=== PATIENT | female | born 1970 | race Caucasian/White ===

== ENCOUNTER 2017-10-09 00:13 | Emergency (ER) | payer MEDICAID, SELFPAY ==
[2017-10-09 00:14] VITALS: BP 144/40; PULSE 108; RESP 18; TEMP 36.8; O2SAT 98; BMI 21.6
--- NOTE | 2017-10-09 00:24 | XR_ITS ---
XR chest 2V Ordering Physician: Tyler Rosales MD Patient Age: 47 years: Female HISTORY: ITS.REASON: cough TECHNIQUE: PA and lateral chest COMPARISON :12/24/2008 and 01/29/2009 chest film FINDINGS No consolidation norfocal peripheral pneumonia . There may be some slight interstitial coarsening could not the subtle interstitial infiltrate but this is equivocal... May reflect chronic changes noted in the slight additional Mild hyperexpansion The heart janes and mediastinal structures appear similar to left janes is upper normal prominence of the study but stable since 2008 No pleural effusion or pneumothorax chest wall and T-spine stable unremarkable IMPRESSION: No consolidation or discrete focal pneumonia.. Only question some questionable very subtle coarsening of interstitial markings bilaterally. Most likely reflectingc subtle chronic changes, but Difficult to exclude a very subtle interstitial infiltrate particularly towards right base. This centimeters progress consider follow-up
[2017-10-09 00:56] LABS: Basophils # 0.1 K/mm3 (0-0.2); Basophils % 0.3 % (0.1-2.0); Eosinophils # 0.1 K/mm3 (0.0-0.4); Eosinophils % 0.6 % (0.1-12.0); Hematocrit 42.5 % (37.0-47.0); Lymphocytes # 2.8 K/mm3 (0.7-4.5); Lymphocytes % 14.9 K/mm3 (10-50); Mean Corpuscular HGB Conc 35.4 g/dL (31.8-35.4); Mean Corpuscular Hemoglobin 31.8 pg (27.0-31.2); Mean Corpuscular Volume 89.7 fl (81-99); Mean Platelet Volume 7.2 fl (7.4-10.4); Monocytes # 1.1 K/mm3 (0.1-1.0); Monocytes % 5.5 % (1.7-9.3); Neutrophils % 78.7 % (37.0-80.0); Platelet Count 309 K/mm3 (142-424); Red Blood Count 4.73 M/mm3 (4.20-5.40); Red Cell Distribution Width 12.2 % (11.5-17.5); White Blood Count 19.1 K/mm3 (4.8-10.8)
[2017-10-09 01:01] LABS: MANUAL DIFFERENTIAL MANUAL DIFFERENTIAL (MANUAL DIFF)
[2017-10-09 01:12] LABS: Anion Gap 15.5 mEq/L (5-15); Blood Urea Nitrogen 9 mg/dL (7-18); Carbon Dioxide 24 mmol/L (21.0-32.0); Chloride 97 mmol/L (98-107); Creatinine Clearance Estimated 74 mL/min (0-300); Creatinine,Serum 0.89 mg/dL (0.55-1.02); Estimated Glomerular Filt Rate 69 ml/min (>60); GFR (African American) 83 ML/MIN (>60); Glucose 94 mg/dL (74-106); Potassium 3.5 mmoL/L (3.5-5.1); Sodium 133 mmol/L (136-145)
[2017-10-09 01:17] LABS: Lymphocytes % 18 % (10-50); Monocytes % 4 % (2-9); Neutrophils % 70 % (42-76); Platelet Estimate Normal; RBC Morphology Normal; Total Cells Counted 100
[2017-10-09 01:22] VITALS: PULSE 88; PULSE 91
--- NOTE | 2017-10-09 01:42 | [facility].EDSOB ---
ED Disposition Clinical Impression: Asthma with exacerbation Qualifiers: Asthma severity: mild Asthma persistence: unspecified Qualified Code(s): J45.901 - Unspecified asthma with (acute) exacerbation Acute bronchitis Qualifiers: Bronchitis organism: unspecified organism Qualified Code(s): J20.9 - Acute bronchitis, unspecified Left otitis externa Qualifiers: Otitis externa type: swimmer's ear Chronicity: acute Qualified Code(s): H60.332 - Swimmer's ear, left ear Leukocytosis Qualifiers: Leukocytosis type: other Qualified Code(s): D72.828 - Other elevated white blood cell count Disposition: Home, Self-Care Condition on Discharge: Good Instructions: DI for Asthma -- Adult, DI for Acute Bronchitis, DI for Otitis Externa Additional Instructions: Please stop smoking, take the medications prescribed as directed, follow-up with PCP if not better within 2 days. Prescriptions: Amoxicillin/Potassium Clav [Augmentin 875-125 Tablet] 1 tab PO Q12H #20 tab Ciprofloxacin HCl/Dexameth [Cipro 0.3%-Dex 0.1% Otic Susp 7.5mL] 7.5 ml OT DIRECTED #1 drops.susp methylPREDNISolone [Medrol] 4 mg PO DIRECTED #1 tab.ds.pk Referrals: Alicja Ames APRN [Primary Care Provider] - Time of Disposition: 01:53 - Critical Care Critical Care Time: No Attestation: On 10/09/17, the high probability of a clinically significant, sudden or life threatening deterioration of the following system(s) required my full and direct attention, intervention and personal management. The time I documented below is in addition to time spent performing reported procedures but includes the following listed in this critical care notation. Medical Decision Making - Medical Records Medical records reviewed: Yes: I reviewed the patient's medical records. Vital Signs: 10/09/17 00:14 10/09/17 01:22 10/09/17 02:58 Temperature 98.3 F 98.8 F Temperature Source Oral Oral Pulse Rate 91 H 72 Pulse Rate [Right Radial] 108 H Respiratory Rate 18 18 Blood Pressure 128/74 Blood Pressure [Left Arm] 144/40 Blood Pressure Mean [Left Arm] 74 Blood Pressure Source Automatic Cuff Blood Pressure Source [Left Arm] Automatic Cuff Blood Pressure Position Sitting Blood Pressure Position [Left Arm] Sitting 02 Sat by Pulse Oximetry 98 Oxygen Delivery Method Room Air Room Air - Lab Data Lab results reviewed: Yes: I reviewed the patient's lab results. Lab Results 10/09/17 00:29: Influenza Type A Ag Negative, Influenza Type B Ag Negative 10/09/17 00:40: WBC 19.1 H, RBC 4.73, Hgb 15.0, Hct 42.5, MCV 89.7, MCH 31.8 H, MCHC 35.4, RDW 12.2, Plt Count 309, MPV 7.2 L, Neut % (Auto) 78.7, Lymph % (Auto) 14.9, [place] % (Auto) 5.5, Eos % (Auto) 0.6, Baso % (Auto) 0.3, Neut # (Auto) 15.0 H, Lymph # (Auto) 2.8, [place] # (Auto) 1.1 H, Eos # (Auto) 0.1, Baso # (Auto) 0.1, Total Counted 100, Neutrophils % (Manual) 70, Band Neutrophils % 8.0, Lymphocytes % (Manual) 18, Monocytes % (Manual) 4, Platelet Estimate Normal, RBC Morphology Normal 10/09/17 00:40: Sodium 133 L, Potassium 3.5, Chloride 97 L, Carbon Dioxide 24, Anion Gap 15.5 H, BUN 9, Creatinine 0.89, Estimated Creat Clear 74, Estimated GFR 69, Est GFR ( Amer) 83, Glucose 94 Result diagrams: 10/09/17 00:40 10/09/17 00:40 Orders (Tests/Meds): ED MEDICATIONS Discontinued Medications Generic Name Dose Route Start Last Admin Trade Name Freq PRN Reason Stop Dose Admin Ceftriaxone Sodium 1 gm/ 50 mls @ 100 mls/hr 10/09/17 01:41 10/09/17 01:57 Sodium Chloride IV 10/09/17 02:10 100 mls/hr ONCE ONE Administration Methylprednisolone Sodium Succinate 125 mg 10/09/17 01:41 10/09/17 01:57 Solu-Medrol 125mg/2ml Vial IV 10/09/17 01:42 125 mg ONCE ONE Administration - Radiology Data #1 Image(s): Chest Image Reviewed: Yes I reviewed the patient's radiology image ??? coarse infiltrate in RLL - ECG Data Tracing #1 ECG normal with no acute: arrhythmias, ischemi
--- NOTE | 2017-10-09 01:49 | ED_ITS ---
ED Disposition Clinical Impression: Asthma with exacerbation Qualifiers: Asthma severity: mild Asthma persistence: unspecified Qualified Code(s): J45.901 - Unspecified asthma with (acute) exacerbation Acute bronchitis Qualifiers: Bronchitis organism: unspecified organism Qualified Code(s): J20.9 - Acute bronchitis, unspecified Left otitis externa Qualifiers: Otitis externa type: swimmer's ear Chronicity: acute Qualified Code(s): H60.332 - Swimmer's ear, left ear Leukocytosis Qualifiers: Leukocytosis type: other Qualified Code(s): D72.828 - Other elevated white blood cell count Disposition: Home, Self-Care Condition on Discharge: Good Instructions: DI for Asthma -- Adult, DI for Acute Bronchitis, DI for Otitis Externa Additional Instructions: Please stop smoking, take the medications prescribed as directed, follow-up with PCP if not better within 2 days. Prescriptions: Amoxicillin/Potassium Clav [Augmentin 875-125 Tablet] 1 tab PO Q12H #20 tab Ciprofloxacin HCl/Dexameth [Cipro 0.3%-Dex 0.1% Otic Susp 7.5mL] 7.5 ml OT DIRECTED #1 drops.susp methylPREDNISolone [Medrol] 4 mg PO DIRECTED #1 tab.ds.pk Referrals: Alicja Ames APRN [Primary Care Provider] - Time of Disposition: 01:53 - Critical Care Critical Care Time: No Attestation: On 10/09/17, the high probability of a clinically significant, sudden or life threatening deterioration of the following system(s) required my full and direct attention, intervention and personal management. The time I documented below is in addition to time spent performing reported procedures but includes the following listed in this critical care notation. Medical Decision Making - Medical Records Medical records reviewed: Yes: I reviewed the patient's medical records. Vital Signs: 10/09/17 00:14 10/09/17 01:22 10/09/17 02:58 Temperature 98.3 F 98.8 F Temperature Source Oral Oral Pulse Rate 91 H 72 Pulse Rate [Right Radial] 108 H Respiratory Rate 18 18 Blood Pressure 128/74 Blood Pressure [Left Arm] 144/40 Blood Pressure Mean [Left Arm] 74 Blood Pressure Source Automatic Cuff Blood Pressure Source [Left Arm] Automatic Cuff Blood Pressure Position Sitting Blood Pressure Position [Left Arm] Sitting 02 Sat by Pulse Oximetry 98 Oxygen Delivery Method Room Air Room Air - Lab Data Lab results reviewed: Yes: I reviewed the patient's lab results. Lab Results 10/09/17 00:29: Influenza Type A Ag Negative, Influenza Type B Ag Negative 10/09/17 00:40: WBC 19.1 H, RBC 4.73, Hgb 15.0, Hct 42.5, MCV 89.7, MCH 31.8 H, MCHC 35.4, RDW 12.2, Plt Count 309, MPV 7.2 L, Neut % (Auto) 78.7, Lymph % (Auto ) 14.9, [place] % (Auto) 5.5, Eos % (Auto) 0.6, Baso % (Auto) 0.3, Neut # (Auto) 15.0 H, Lymph # (Auto) 2.8, [place] # (Auto) 1.1 H, Eos # (Auto) 0.1, Baso # (Auto ) 0.1, Total Counted 100, Neutrophils % (Manual) 70, Band Neutrophils % 8.0, Lymphocytes % (Manual) 18, Monocytes % (Manual) 4, Platelet Estimate Normal, RBC Morphology Normal 10/09/17 00:40: Sodium 133 L, Potassium 3.5, Chloride 97 L, Carbon Dioxide 24, Anion Gap 15.5 H, BUN 9, Creatinine 0.89, Estimated Creat Clear 74, Estimated GFR 69, Est GFR ( Amer) 83, Glucose 94 Result diagrams: 10/09/17 00:40 10/09/17 00:40 Orders (Tests/Meds): ED MEDICATIONS Discontinued Medications Generic Name Dose Route Start Last Admin Trade Nam
[2017-10-09 02:58] VITALS: BP 128/74; PULSE 72; RESP 18; TEMP 37.1; O2SAT 98
== END 2017-10-09 03:00 | disposition home or self-care (01) ==
PROVIDERS: Emergency Provider Emergency Medicine; Family Provider Internal Medicine Adolescent Medicine; PCP Nurse Practitioner Family
DX: J45.901 Unspecified asthma with (acute) exacerbation (principal); J20.9 Acute bronchitis, unspecified; H60.332 Swimmer's ear, left ear; D72.828 Other elevated white blood cell count; Z88.8 Allergy status to other drugs, medicaments and biological substances; Z79.899 Other long term (current) drug therapy
CPT/HCPCS: 71046; 80048; 85007; 85025; 87275; 87276; 96365; 96374; 99283

== ENCOUNTER → 2018-05-10 13:56 | Outpatient (CLI) | payer MEDICAID, SELFPAY ==
--- NOTE | 2018-05-10 13:59 | US_ITS ---
US thyroid HISTORY: ITS.REASON: ENLARGED THYROID,THYROID NODULE ORDERING PHYSICIAN: Alicja Ames PATIENT AGE: 47 years Comparison: None FINDINGS: Right lobe: 4.5 x 1.4 x 2.3 cm. A partially cystic nodules present in the midpole region at 5 x 4 mm Left lobe: 3.8 x 1 x 2.4 cm. Unremarkable appearance Isthmus: Unremarkable IMPRESSION: 5 mm complex cystic nodule in the mid polar region on the right unchanged Overall stable appearance of the thyroid gland
== END ==
PROVIDERS: PCP Internal Medicine Adolescent Medicine; Visit Provider Nurse Practitioner Family
DX: E04.9 Nontoxic goiter, unspecified (principal); E04.1 Nontoxic single thyroid nodule
CPT/HCPCS: 76536